=== PATIENT | male | born 1975 | race Caucasian/White ===

== ENCOUNTER 2017-08-30 07:47 | Emergency (ER) | payer SELFPAY ==
[~2017-08-30] VITALS: Ht 170.2 cm; Wt 101.0 kg
[2017-08-30 07:52] VITALS: BP 149/79
[2017-08-30] MEDS ORDERED: TETRACAINE 0.5% OPHTH DROPS 4ML RIGHTEYE ONE (10:15)
[2017-08-30] MEDS ORDERED: FLUORESCEIN SODIUM 1MG/STRIP RIGHTEYE ONE (10:15)
== END 2017-08-30 12:48 | disposition home or self-care (01) ==
LOC: ER 08:06
DX: S05.01XA Injury of conjunctiva and corneal abrasion without foreign body, right eye, initial encounter (principal); X58.XXXA Exposure to other specified factors, initial encounter; Y93.K1 Activity, walking an animal; Y92.89 Other specified places as the place of occurrence of the external cause
CPT/HCPCS: 99283; J7050